=== PATIENT | female | born 1955 | race Caucasian/White ===

== ENCOUNTER → 2018-09-12 | Outpatient (CLI) | payer SELFPAY ==
--- NOTE | 2018-09-12 13:34 | KCIC ---
EXAM: Bilateral screening mammogram. HISTORY: 63-year-old female presents for screening mammography. TECHNIQUE: Full-field digital craniocaudal and mediolateral oblique views of both breasts are obtained for evaluation. Computer aided detection with [employer] software version 9.3 was applied. COMPARISON: 07/24/2015 BREAST PARENCHYMAL DENSITY: Level D - Extremely dense. FINDINGS: There is no new suspicious mass, microcalcification or region of architectural distortion. IMPRESSION: BI-RADS Category 2: Benign finding(s). RECOMMENDATION: Annual mammography is recommended. If your mammogram demonstrates that you have dense breast tissue, which could hide abnormalities, and if you have other risk factors for breast cancer that have been identified, you might benefit from supplemental screening tests that may be suggested by your ordering physician. Dense breast tissue, in and of itself, is a relatively common condition. This information is not provided to cause undue concern, but rather to raise your awareness and to promote discussion with your physician regarding the presence of other risk factors, in addition to dense breast tissue. A report of your mammography results will be sent to you and your physician. You should contact your physician if you have any questions or concerns regarding this report. Mammography is a sensitive method for finding small breast cancers, but it does not detect them all and is not a substitute for careful clinical examination. A negative mammogram does not negate a clinically suspicious finding and should not result in delay in biopsying a clinically suspicious abnormality. PQRS compliance statement - Patient information was entered into a reminder system with a target due date for the next mammogram. "Our facility is accredited by the [employer] Mamm[employer]." Electronically signed by: Yisel Soriano MD (09/12/2018 1:30 PM) [id number]
== END | disposition home or self-care (01) ==
LOC: KCIC MAMMO 12:36
PROVIDERS: ATTEND Obstetrics & Gynecology
DX: Z12.31 Encounter for screening mammogram for malignant neoplasm of breast (principal)
CPT/HCPCS: 77067

== ENCOUNTER → 2019-10-25 | Outpatient (CLI) | payer MEDICARE ==
--- NOTE | 2019-10-25 14:46 | KCIC ---
Bilateral digital screening mammograms with 3-D tomosynthesis: Reason for examination: Routine screening. Comparison is made to previous studies dated 09/12/2018 and 07/24/2015. Bilateral mammograms in CC and oblique projections were obtained with 2-D imaging and 3-D tomosynthesis imaging on a Siemens Inspiration unit and reviewed on the workstation. Interpretation was made with the benefit of CAD. The skin and nipples show no abnormalities. No abnormal axillary lymph nodes are seen. The breast parenchyma is extremely dense. (Breast density: Category D.) There appears to be some nodular density in the lower inner quadrant of the right breast at approximately the 5:00 B position and both superiorly and inferiorly in the left breast probably around the 11:00 and 5:00 B positions. Further evaluation with ultrasound is recommended. There are some scattered calcifications throughout the breasts bilaterally which have benign appearances. Impression: Dense breasts with nodular areas of parenchymal density seen bilaterally. Recommend further evaluation with bilateral breast ultrasound. Your patient's mammogram demonstrates that she has dense breast tissue (breast density category C or D), which could hide abnormalities, and if she has other risk factors for breast cancer that have been identified, she might benefit from supplemental screening tests that may be suggested by you as her ordering physician. Dense breast tissue, in and of itself, is a relatively common condition. Therefore, this information is not provided to cause undue concern, but rather to raise your awareness and to promote discussion with your patient regarding the presence of other risk factors, in addition to dense breast tissue. Your patient's mammography results will be sent to her. BI-RAD Category 0: Incomplete. Needs additional imaging evaluation. "Our facility is accredited by the [employer] Mammography [employer]." This patient's information has been entered into a reminder system for the patient to be notified with the results of her examination and a target date for the next mammogram. Electronically signed by: Mariluz Paul MD (10/25/2019 2:44 PM) [facility]
== END | disposition home or self-care (01) ==
LOC: KCIC MAMMO 12:55
PROVIDERS: ATTEND Obstetrics & Gynecology
DX: Z12.31 Encounter for screening mammogram for malignant neoplasm of breast (principal); N64.89 Other specified disorders of breast
CPT/HCPCS: 77063; 77067

== ENCOUNTER → 2019-10-31 | Outpatient (CLI) | payer MEDICARE ==
--- NOTE | 2019-10-31 16:03 | KCIC ---
Bilateral breast ultrasound: Reason for examination: Nodular densities on screening mammogram. Comparison is made to mammographic exam dated 10/25/2019. Bilateral whole breast ultrasound including evaluation of all 4 quadrants and the retroareolar and axillary regions of both breasts was performed. In the right breast, there is a hypoechoic lesion with irregular margination at the 5:00 position 4.5 cm from the nipple and measuring 4.7 mm in greatest dimension. Further evaluation with ultrasound-guided biopsy is recommended. There are some fibrocystic changes at the 6:00 position 4 cm from the nipple No other cystic or solid nodules are seen. No abnormal appearing lymph nodes are seen in the right axilla. In the left breast, there is ductal ectasia in the retroareolar 11:00 and 12:00 positions. There is a small 5.4 mm hypoechoic fibrocystic lesion at the 12:00 position 3 cm from the nipple. There is a 3.7 mm hypoechoic fibrocystic type lesion at the 5:00 position 4 cm from the nipple. In the medial left breast there is some ductal ectasia and some diffuse fibrocystic type changes but no focal suspicious-appearing nodules are seen. No abnormal appearing lymph nodes are seen in the left axilla. IMPRESSION: 4.7 mm nodule at the 5:00 position of the right breast 4.5 cm from the nipple. Further evaluation with ultrasound-guided biopsy is recommended. Benign-appearing fibrocystic type changes bilaterally. Recommend 6 month follow-up. BI-RADS Category 4: Suspicious. These findings have been discussed with the patient and Dr. Esparza's nurse, was notified about these findings at 3:55 PM on 10/31/2019 with a message left on the answering machine available. "Our facility is accredited by the [employer] Mammography [employer]." Electronically signed by: Mariluz Paul MD (10/31/2019 4:00 PM) [email or web address]
== END | disposition home or self-care (01) ==
LOC: KCIC US 13:15
PROVIDERS: ATTEND Obstetrics & Gynecology
DX: N60.42 Mammary duct ectasia of left breast (principal); N63.14 Unspecified lump in the right breast, lower inner quadrant
CPT/HCPCS: 76641